=== PATIENT | female | born 1975 | race African-American/Black ===

== ENCOUNTER 2019-01-28 11:11 | Outpatient (CLI) | payer MEDICAID ==
--- NOTE | 2019-01-28 12:20 | ULT ---
PELVIC ULTRASOUND: Transabdominal and endovaginal ultrasound of the pelvis performed. INDICATION: Uterine hypertrophy. Vaginal bleeding. FINDINGS: Uterus is prominent in size measuring 15 cm x 7.3 cm x 5.8 cm. The endometrium is thickened measured at 1.5 cm. The right ovary is mildly prominent measuring up to 6 x 2 x 2.5 cm. The left ovary is unremarkable m easuring 3 x 2.5 x 2 cm. Color Doppler with spectral analysis demonstrates blood flow to both ovarie s. Minimal free fluid in the cul-de-sac. IMPRESSION: 1. Mildly prominent uterus. 2. Thickened endometrium. 3. Prominent right ovary with uncertain significance. 4. Tiny amount of cul-de-sac fluid. POS: [facility]
== END 2019-01-28 11:12 | disposition home or self-care (01) ==
LOC: BICULT 11:11
PROVIDERS: ATTEND Nurse Practitioner
DX: N85.2 Hypertrophy of uterus (principal); R93.89 Abnormal findings on diagnostic imaging of other specified body structures
CPT/HCPCS: 76856